=== PATIENT | female | born 1955 | race Caucasian/White ===

== ENCOUNTER 2018-05-14 18:14 | Inpatient (IN) | payer BC ==
[2018-05-14 18:47] LABS: PLATELET COUNT 161 10^3/uL (150-400)
[2018-05-14] MEDS ORDERED: EPINEPHrine 1 MG/10 ML SYR IVP ONE ×5 (18:59→20:43)
[2018-05-14] MEDS ORDERED: NALOXONE HCL 0.4 MG/ML INJ IVP ONE (19:00)
[2018-05-14] MEDS ORDERED: SODIUM BICARBONATE 50 MEQ/50 ML SYR IVP ONE ×2 (19:00→22:21)
[2018-05-14] MEDS ORDERED: NS 1,000 ML IV ONE (19:02)
[2018-05-14] MEDS ORDERED: fentaNYL 100 MCG/2 ML INJ ONE (19:18)
[2018-05-14] MEDS ORDERED: LIDOCAINE 1% 300 MG/30 ML SDV ONE (19:18)
[2018-05-14] MEDS ORDERED: IOPAMIDOL (ISOVUE-370) 150 ML BTL IV ONE (19:19)
[2018-05-14] MEDS ORDERED: MIDAZOLAM 2 MG/2 ML VIAL ONE (19:19)
[2018-05-14] MEDS ORDERED: IOPAMIDOL (ISOVUE 370) 100 ML BTL IV ONE ×2 (19:24→19:48)
[2018-05-14] MEDS ORDERED: BIVALIRUDIN 250 MG/5 ML VIAL IV ONE (20:19)
[2018-05-14] MEDS ORDERED: VERAPAMIL 5 MG/2 ML VIAL ONE (20:19)
[2018-05-14] MEDS ORDERED: HEPARIN 10,000 UNIT/10 ML MDV (1,000 UNIT/ML) ONE (20:19)
[2018-05-14] MEDS ORDERED: NITROGLYCERIN 1,500 MCG/15 ML VIAL MISC ONE (20:20)
[2018-05-14] MEDS ORDERED: ATROPINE SULFATE 1 MG/10 ML SYR ONE (20:20)
[2018-05-14] MEDS ORDERED: ETOMIDATE 40 MG/20 ML INJ ONE (20:27)
[2018-05-14] MEDS ORDERED: SUCCINYLCHOLINE CHLORIDE 200 MG/10 ML SYR IVP ONE (20:28)
[2018-05-14] MEDS ORDERED: DOPamine/DEXTROSE 400 MG/250 ML BAG IV ONE ×2 (20:33→20:43)
[2018-05-14] MEDS ORDERED: SODIUM BICARBONATE 50 MEQ/50 ML SYR ONE (20:43)
[2018-05-14] MEDS ORDERED: D25W 2.5 GM/10 ML SYR IVP ONE (20:43)
--- NOTE | 2018-05-14 20:44 | EDPHY ---
H & P Stated Complaint: Passed out at home. Time Seen by Provider: 05/14/18 18:15 HPI/ROS: CHIEF COMPLAINT: Unresponsive Limitations: Unresponsive HISTORY OF PRESENT ILLNESS: 62-year-old female with diabetes presents with unresponsiveness. According to her , she was acting normally throughout the day and has not been ill recently. However he took a nap and when he awoke at 5:00 p.m., she was lying on the couch unresponsive and blue. On EMS arrival , she was blue, agitated and they were unable to obtain vital signs. O2 by face mask placed. Unable to obtain IV access. She was writhing and complained of back pain. She is unable to provide any clinical history. Per , does not take pain or sedative medications. No prior cardiopulm disease. No vomiting. ROS: unable to obtain - Personal History Current Tetanus Diphtheria and Acellular Pertussis (TDAP): Unsure - Medical/Surgical History Hx Diabetes: Yes Other PMH: Diabetic. Compression discs. CHF. Pinched nerves. - Social History Smoking Status: Unknown if ever smoked Drug Use: None Additional Social History: - Physical Exam Exam: General Appearance: greyish coloration, opens eyes to voice, reclining on gurney Eyes: Pupils equal and round, 3mm ENT, Mouth: Mucous membranes moist Neck: Normal inspection Respiratory: Decreased respiratory effort, but breathing spontaneously Cardiovascular: Regular tachycardia Gastrointestinal: Abdomen is soft, obese, no apparent tenderness Neurological: Opens eyes to voice, moves all extremities, but not to command Skin: Warm and dry Extremities: Normal inspection Psychiatric: Agitated Constitutional: Initial Vital Signs Heart Rate 130 H 05/14/18 18:17 Respiratory Rate 28 H 05/14/18 18:17 O2 Sat (%) 93 05/14/18 18:17 O2 Delivery Mode Ventilator Allergies/Adverse Reactions: Unable to Assess Allergy (Unverified 05/14/18 21:18) Home Medications: Medication Instructions Recorded NK [No Known Home Meds] 05/14/18 Medical Decision Making - Diagnostics EKG Interpretation: EKG interpreted by me reveals normal sinus rhythm, rate 86, ST segment depression in leads V2 through the 6, consistent with posterior OK. ST segment depression in leads II, III, AVF. Interpretation: Abnormal EKG Imaging Results: Chest X-Ray 05/14/18 18:24 Impression: 1. Endotracheal tube seen with the tip approximately 6 cm above the christy. 2. Cardiac enlargement. 3. Possible mediastinal widening with additional imaging evaluation suggested if the patient's condition allows. Results called and discussed with Dr. Lucas on 05/14/2018 at 19:12.. Imaging: Discussed imaging studies w/ surgeon assistant Radiologist, I viewed and interpreted images myself Procedures: Procedure: RSI Intubation Indication for the procedure was respiratory arrest. The patient was preoxygenated with 100% oxygen by face mask. The patient was orally endotracheally intubated under direct glidescope visualization with a 7.5 ETT. Tracheal intubation was confirmed with misting on the tube; equal breath sounds bilaterally immediately after intubation; appropriate color change with [place] Tidal CO2 detector; and appropriate capnography waveform. Oxygen saturation after intubation is 88%. Chest X-ray shows ETT is high; RT advanced the ETT for better positioning. The procedure was performed by myself. ED Course/Re-evaluation: This patient presents with respiratory failure. Unable to obtain vital signs on arrival to the ER. During my initial evaluation, it was clear that she needed to be intubated. We moved her to the critical care room and during transfer, she became unresponsive to painful stimuli, with minimal respiratory effort. She was bag-valve mask ventilated and then I orally intubated her with a 7.0 endotracheal tube. An IO line was placed in the tibia and then 2 IV lines were ultimately established. Narcan 2 mg IV given without change in mental status. Initial blood glucose 300's. No medications required for intubation because of unresponsiveness. Immediately after the intubation, she did not have pulses. ACLS protocol initiated, with CPR and epinephrine IV. She was in asystole throughout the resuscitation. After IV bicarb, she regained pulses and was in a sinus rhythm with PVC's. Hypotensive, dopamine drip initiated. Stat EKG at this point revealed acute posterior OK. A cardiac alert was called. Consulted Dr. Mercer. Ice packs were applied for cooling with plan for thermoguard placement in lab director. Stat chest x-ray revealed endotracheal tube a little high and it was lowered. Mediastinum was wide; unclear if this was because of aortic dissection versus supine positioning. Her vital signs improved and she was felt stable to go to CT scan for CTA of the chest prior to cardiac catheterization. CT revealed no evidence of dissection. She was taken from CT directly to the cardiac catheterization lab. Propofol drip started for sedation prior to transfer. Multiple discussions with pt's , who was present during the resuscitation. I spent a total of 60 minutes of critical care time in obtaining history, performing a physical exam, bedside monitoring of interventions, collecting and interpreting tests and discussion with consultants but not including time spent performing procedures. Organs at risk: cardiac, respiratory, all Differential Diagnosis: Differential diagnosis includes does not limited to acute coronary syndrome, pneumonia, pulmonary embolism, dissection, CVA, hypoglycemia, narcotic overdose. - Data Points Laboratory Results: Laboratory Results 05/14/18 18:30 05/14/18 18:30 Medications Given: Dopamine HCl/Dextrose (Dopamine 1600 Mcg/Ml (Premix)) 250 mls @ 0 mls/hr IV CONT LOBO; Titrate PRN Reason: Protocol Stop: 11/10/18 19:29 Last Admin: 05/15/18 10:31 Dose: 250 mls Sodium Chloride (Ns) 1,000 mls @ 150 mls/hr IV CONT LOBO Stop: 11/10/18 22:14 Last Admin: 05/15/18 06:22 Dose: 1,000 mls Propofol (Diprivan 10 Mg/Ml (Premix)) 100 mls @ 0 mls/hr IV CONT LOBO; Titrate PRN Reason: Protocol Stop: 11/10/18 22:29 Last Admin: 05/15/18 08:37 Dose: 100 mls Vecuronium [place] 50 mg/ (Dextrose) 50 mls @ 0 mls/hr IV CONT LOBO; Per Protocol PRN Reason: Protocol Stop: 11/11/18 08:59 Last Admin: 05/15/18 09:23 Dose: 50 mls Discontinued Medications Epinephrine HCl (Epinephrine) 1 mg IVP EDNOW ONE Stop: 05/14/18 19:00 Last Admin: 05/14/18 18:38 Dose: 1 mg Epinephrine HCl (Epinephrine) 1 mg IVP EDNOW ONE Stop: 05/14/18 19:01 Last Admin: 05/14/18 18:41 Dose: 1 mg Epinephrine HCl (Epinephrine) 1 mg IVP EDNOW ONE Stop: 05/14/18 19:01 Last Admin: 05/14/18 18:42 Dose: 1 mg Sodium Chloride (Ns) 1,000 mls @ 0 mls/hr IV EDNOW ONE; Wide Open PRN Reason: Protocol Stop: 05/14/18 19:03 Last Admin: 05/14/18 18:35 Dose: 1,000 mls Potassium Chloride (Potassium Cl 20 Meq (Premix)) 50 mls @ 50 mls/hr IV Q1H LOBO Stop: 05/15/18 08:14 Last Admin: 05/15/18 08:10 Dose: 50 mls Lidocaine (Lidocaine 2% Jelly) 2 mor TP ONCALL ONE Stop: 05/15/18 09:08 Last Admin: 05/15/18 09:44 Dose: 1 ampil Lidocaine HCl (Lidocaine Hcl 1%) 1 - 300 mg MISC ONCALL ONE Stop: 05/15/18 09:08 Last Admin: 05/15/18 09:28 Dose: 300 mg Naloxone HCl (Narcan) 0.4 mg IVP EDNOW ONE Stop: 05/14/18 19:01 Last Admin: 05/14/18 18:30 Dose: 0.4 mg Sodium Bicarbonate (Sodium Bicarbonate) 50 meq IVP EDNOW ONE Stop: 05/14/18 19:01 Last Admin: 05/14/18 18:42 Dose: 50 meq Sodium Bicarbonate (Sodium Bicarbonate) 50 meq IVP ONCE ONE Stop: 05/14/18 22:22 Last Admin: 05/14/18 23:06 Dose: 50 meq Vecuronium [place] (Vecuronium [place]) 22.5 mg IVP ONCE ONE Stop: 05/15/18 09:01 Last Admin: 05/15/18 09:23 Dose: 22.5 mg Point of Care Test Results: Chemistry 05/14/18 19:32 POC Troponin I 0.08 ng/mL ng/mL (0.00-0.08) Blood Gas/Lactic Acid-Arterial 05/14/18 20:40 Tidal Volume 600 Departure - Departure Disposition: [facility] Inpatient Acute Clinical Impression: Acute coronary syndrome Respiratory failure Qualifiers: Chronicity: acute Respiratory failure complication: hypoxia and hypercapnia Qualified Code(s): J96.01 - Acute respiratory failure with hypoxia; J96.02 - Acute respiratory failure with hypercapnia; J96.02 - Acute respiratory failure with hypercapnia; J96.02 - Acute respiratory failure with hypercapnia Condition: Critical
--- NOTE | 2018-05-14 21:09 | GHP ---
DATE OF ADMISSION: 05/14/2018 REASON FOR ADMISSION: Probable acute posterior myocardial infarction. HISTORY: The patient is a 62-year-old female. She has a past history of hypertension and type 2 diabetes. She was previously on treatment for both of these issues, but has not been on medications in the past few years. She is morbidly obese. She and her were at home this evening. She went out to their porch to sit on a couch and work on her computer. Sometime within 30-45 minutes later, her looked out on the porch and noticed that her computer had fallen to the ground. He found her to be breathing but cyanotic. She was minimally responsive. He called 911. The patient was transported to the emergency room at [facility] where her initial ECG demonstrated significant precordial ST-segment depression, suggesting a possible posterior myocardial infarction. The patient was unstable with hypotension and hypoxia. At some point, she was reported to be writhing and complaining of back pain. Preparations were made to intubate her. In and around the time of her intubation, she developed asystole and chest compressions were initiated. She received rounds of intravenous epinephrine and was started on intravenous dopamine. She had return of a blood pressure and pulse. I was contacted regarding a cardiac alert. As I arrived to the hospital emergency room, I was contacted by the ER attending who relayed that her portable chest x-ray was suggestive of a widened mediastinum. This was concerning, given her clinical history that she might possibly have an ascending aortic dissection that occluded the right coronary artery, producing an appearance of a posterior infarct. Preparations were made to transport the patient to the CT scanner for CT angiography of the aorta. That study has just been completed and she does not have an aortic dissection. She is now being transported to the cardiac laborer pipeline for diagnostic angiography and possible coronary intervention. PAST MEDICAL HISTORY: As mentioned above, she was previously treated for diabetes and hypertension. Hospital records demonstrate that she had hyperlipidemia in the past. She was previously under the care of Dr. Juan Miguel Caruso and Dr. Brayan Deng. Her reports that she has issues with anxiety. PAST SURGICAL HISTORY: There are no known previous surgical procedures. MEDICATIONS: Currently not taking any prescription medications. ALLERGIES: No known drug allergies. SOCIAL HISTORY: She is . She smokes 8-10 cigarettes per day. She does not consume significant amounts of alcohol. She does not use illicit substances. 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 REVIEW OF SYSTEMS: Unobtainable at this time. FAMILY HISTORY: Unknown. PHYSICAL EXAMINATION: VITAL SIGNS: Heart rate in the range of 115 BPM. Blood pressure 152/84 mmHg on intravenous dopamine. O2 saturation 92%. GENERAL: This is a morbidly obese, middle-aged woman who is currently intubated and not responsive. HEENT: Head and neck: No scleral icterus. Mucous membranes moist. CHEST: Lung leonard clear anteriorly. CARDIAC: Regular rate and rhythm with normal S1 and S2. No murmur or gallop. ABDOMEN: Obese, soft, nondistended. EXTREMITIES: 2+ pulses in all 4 extremities. DIAGNOSTIC DATA: Her ECG demonstrates sinus rhythm at 86 beats per minute. She has inferior and precordial ST-segment depressions. She has borderline voltage criteria for left ventricular hypertrophy. LABORATORY STUDIES: Her sodium is 141 with potassium 3.5. BUN 16 and creatinine 0.8. Her arterial blood gas demonstrates a pH of 6.64 with PO2 of 110, pCO2 of 78, and bicarbonate 8. Her CBC demonstrates a white blood cell count at 9.55 with hemoglobin and hematocrit of 16.9 and 58.2. Platelet count 161,000. IMPRESSION/PLAN: This is a 62-year-old woman who presents with a sudden collapse. She has an electrocardiogram suggestive of a posterior infarct. Because of mediastinal widening on her chest x-ray, a CT angiogram of the thoracic aorta was performed, which does not demonstrate acute aortic dissection. She has risk factors for coronary artery disease. Preparations are underway to perform emergent coronary angiography and possible coronary intervention. There will be a significant delay in her door to balloon time, which was secondary to the need to confirm the absence of an aortic dissection by CT scan. She will definitely require greater than 2 midnights' hospital stay for care of her life-threatening condition. /[id number]/MODL MTDD
[2018-05-14] MEDS ORDERED: ATROPINE SULFATE 1 MG/10 ML SYR IVP PRN (21:21)
[2018-05-14] MEDS ORDERED: ACETAMINOPHEN 325 MG TAB PO PRN (21:21)
--- NOTE | 2018-05-14 22:03 | CPEKG ---
Test Reason : OPEN Blood Pressure : / mmHG Vent. Rate : 086 BPM Atrial Rate : 086 BPM P-R Int : 136 ms QRS Dur : 113 ms QT Int : 319 ms P-R-T Axes : 120 077 251 degrees QTc Int : 382 ms Sinus tachycardia Atrial premature complexes LVH with secondary repolarization abnormality Repol abnrm, severe global ischemia (LM/MVD) ST segment depression V2-V6, c/w posterior CO Confirmed by Olena Lucas ([id number]) on 05/14/2018 10:02:39 PM Referred By: Confirmed By:Olena Lucas
--- NOTE | 2018-05-14 22:09 | CPIP ---
DATE OF PROCEDURE: 05/14/2018 INDICATION FOR PROCEDURE: Out of hospital cardiac or respiratory collapse, abnormal ECG suggesting acute posterior myocardial infarction, hypotension, and a period of asystole in the emergency room. DETAILS OF PROCEDURE: The patient was brought to the cardiac lab engineer emergently after undergoing CT angiography of the aorta to rule out acute aortic dissection. The right groin was prepped and draped in sterile fashion. A 6-Peruvian sheath was placed in the right femoral artery. Coronary angiography was performed using standard Emilie catheters and techniques. A left ventriculogram was performed in the 30-degree COFFEY projection using a 6-Peruvian pigtail catheter. Following the diagnostic angiographic procedure, a 7-Peruvian sheath was placed in the right femoral vein. A 7-Peruvian balloon-directed pulmonary catheter was used to perform right heart catheterization. The femoral and arterial venous sheaths were sutured in place at the termination of her procedure. FINDINGS: Hemodynamics: 1. Aortic pressure: 87/60/69 mmHg. 2. Left ventricle: 102/25 mmHg. 3. Right atrium: 18 mmHg. 4. Right ventricle: 56/23 mmHg. 5. Pulmonary artery: 56/27/38 mmHg. 6. Pulmonary capillary wedge: 25 mmHg. Oxygen Saturations: 1. Aorta: 94.6%. 2. Pulmonary artery: 73.9%. 3. Cardiac output: 6.0 L/minute. 4. Cardiac index: 2.47 L/minute/sq m. Left Ventriculogram: Left ventricular systolic function is normal to hyperdynamic with an estimated ejection fraction of 70%. There is no regional variation in contractility. Coronary Angiography: The patient has a right-dominant circulation pattern. 1. Left main: The left main coronary is normal in appearance. 2. Left anterior descending: The left anterior descending and its diagonal branches exhibit minimal luminal irregularities. 3. Circumflex: The circumflex and its obtuse marginal branches exhibit minimal luminal irregularities. 4. Right coronary artery: The RCA and its distal branches exhibit minimal luminal irregularities. COMPLICATIONS: None. CONCLUSIONS: 1. Normal left ventricular systolic function. 2. Minimal early coronary atherosclerotic changes. 3. Moderate pulmonary hypertension. 4. Normal cardiac output/cardiac index. /[id number]/MODL MTDD
[2018-05-14] MEDS ORDERED: ACETAMINOPHEN 650 MG SUPP PR PRN (22:12)
[2018-05-14] MEDS ORDERED: ONDANSETRON 4 MG/2 ML VIAL IVP PRN (22:12)
[2018-05-14] MEDS ORDERED: INSULIN REGULAR HUMAN 100 UNIT in NS 100 ML IV SCH (22:30)
[2018-05-14 22:43] LABS: CREATINE KINASE 565 IU/L (0-156)
[2018-05-14 22:54] LABS: PLATELET COUNT 157 10^3/uL (150-400)
[2018-05-14] MEDS: PROPOFOL/EMULSION 100 ML IV SCH (23:06)
--- NOTE | 2018-05-14 23:08 | PDGENHP ---
History and Physical - Chief Complaint found unresponsive and cyanotic. cardiac arrest - History of Present Illness Source - Case discussed with accepting hospitalist, patient family (including and adult children), surgeon and pulm/cc providers. EMR was reviewed. HPI - 62 yo F with pmx significant for untreated DM II/neuropathy, HTN, morbid obesity, lymphedema who presents to the ED today via EMS after found her unresponsive on the porch. The patient apparently had gone to sit down and look at her tablet her computer approximately 1 hr afterwards has been woke from a nap and came to check on the patient and found her to be unresponsive with the computer on the floor. She was not able to arouse the patient and she appeared cyanotic but was still breathing. 911 was called and EMS was unable to obtain a set of vital signs or pulse ox. Patient on route was agitated complaining of back pain with progressively worsening responsiveness. patient brought into the ED where she was emergently intubated. In process of moving patient to the critical care room in the ED she subsequently became unresponsive with loss of pulses. She underwent approximately 15-20 minutes of CPR with ROSC. She required dopamine for pressure support which continues in the ICU. Patient subsequently taken on for CTA on for concerns of widened mediastinum on chest x-ray. No evidence of aortic dissection. No PE. There is left lower lobe effusion and contusion possibly related to CPR. Patient subsequently taken emergently to the car barn laborer where there is no no evidence of occlusive disease. Patient with fluctuating blood pressures as low systolic in the 50s. Improve after IV fluids and use of dopamine but remains variable. Patient also developed myoclonic jerking improved with sedation. Has been denies any recent complaints or symptoms of cough, rhinorrhea or upper respiratory symptoms. No history of diarrhea or sick contacts. No fevers or chills recently. Per the , patient was in her usual state of health. He does note patient has been having symptoms of polyuria, polydipsia dip see a, polyphasia. He admits that over the last several years she has become terrified of going to healthcare providers and has not been on any medications or had any monitoring of her diabetes her other chronic medical issues in several years. He states that she also minimize the some of her symptoms and does not tend to share with the family any acute changes. denies any known fevers chills or appearance of feeling acutely ill from her baseline. She has been having issues with her lymphedema and has been seeing her niece who is a massage therapist trying to work on those symptoms. She has been having increased neuropathy as well as chronic back pain issues with radicular symptoms. She does have chronic orthopnea and must sleep almost upright in order to breathe at night time. Has been denies witnessing any apneic episodes but she has severe snoring and difficulty breathing if she reclines too far back. History Information - Allergies/Home Medication List Allergies/Adverse Reactions: Unable to Assess Allergy (Unverified 05/14/18 21:18) Home Medications: NK [No Known Home Meds] 05/14/18 [Last Taken Unknown] I have personally reviewed and updated: family history, medical history, social history, surgical history Past Medical History: Obtained per patient's and adult children. - Past Medical History diabetes type 2 Additional medical history: Dm 2 uncontrolled untreated, HLD, HTN, morbid obesity, neuropathy, RLS, lymphedema, chronic back pain with compressed discs and radicular symptoms. - Surgical History Additional surgical history: Eyelid tumor benign removed. Knee surgery 30 years ago. - Family History Positive for: diabetes type II - Social History Tobacco Use: Cigarettes (Less than half pack per day) Alcohol Use: None Drug Use: None Additional social history: Cor status-full per family. Patient is and lives with her . Review of Systems Review of Systems: Unable to obtain as patient is intubated and sedated unresponsive. See HPI as noted per . Physical Exam Physical Exam: Selected Entries 05/14/18 05/14/18 05/14/18 18:17 18:40 18:48 Blood Pressure Automatic Automatic Method Heart Rate 130 H 86 80 Respiratory 28 H Rate O2 Sat (%) 93 76 L 76 L Temperature (C) 35.8 C L Blood Pressure 115/42 L Mean Arterial 66 Pressure (MAP) ETCO2 (mmHg) 58 H O2 Delivery Room Air Ventilator Ventilator Mode Temperature Oral Axillary Source Temp Pulse Resp BP Pulse Ox 34.9 C L 85 24 H 110/69 91 L 05/14/18 22:53 05/14/18 22:53 05/14/18 22:53 05/14/18 22:53 05/14/18 22:53 FIO2 (%) 100 Constitutional: chronically ill appearing, obese, other (Patient appears critically ill. Morbidly obese female is intubated in bed.) Eyes: PERRL (Decreased reactivity to light bilaterally but symmetric.), anicteric sclera, No EOMI (Unable to obsess secondary to patient's sedation and unresponsive state), No scleral injection Ears, Nose, Mouth, Throat: no oral mucosal ulcers, poor dentition (Edentulous), dry mucous membranes, other (No nasal discharge) Cardiovascular: regular rate and rhythym, no murmur, rub, or gallop, pulses symmetric bilaterally (Diminished trace to 1+.), bradycardia (50s to 60s), No systolic murmur, No edema Peripheral Pulses: 1+: dorsalis-pedis (R), dorsalis-pedis (L) Respiratory: reduced air movement (Bibasilar. Diminished. Slightly coarse breath sounds on the left lower lung leonard.), inspiratory crackles, other ( Intubated), No expiratory wheeze, No rhonchi Gastrointestinal: other (Hypoactive bowel sounds. Obese abdomen.) Genitourinary: no bladder tenderness, koenig in urethra, other (Patient with various bilateral femoral lines/catheters in place) Skin: warm, no rashes or abrasions, other (Fingernails and toenails dark in with decreased cap refill), No mottled, No erythema Musculoskeletal: other (Sedated. Mild clonic jerking intermittently. No purposeful movement appreciated.) Neurologic: other (Intubated sedated.) Psychiatric: other (Intubated sedated.) Lab Data & Imaging Review 05/14/18 22:00 05/14/18 22:10 WBC 19.03 10^3/uL (3.80-9.50) H 05/14/18 22:00 RBC 4.83 10^6/uL (4.18-5.33) 05/14/18 22:00 Hgb 14.4 g/dL (12.6-16.3) 05/14/18 22:00 Hct 43.0 % (38.0-47.0) 05/14/18 22:00 MCV 89.0 fL (81.5-99.8) 05/14/18 22:00 MCH 29.8 pg (27.9-34.1) 05/14/18 22:00 MCHC 33.5 g/dL (32.4-36.7) 05/14/18 22:00 RDW 13.2 % (11.5-15.2) 05/14/18 22:00 Plt Count 157 10^3/uL (150-400) 05/14/18 22:00 MPV 11.5 fL (8.7-11.7) 05/14/18 22:00 Neut % (Auto) Not Reported 05/14/18 22:00 Lymph % (Auto) Not Reported 05/14/18 22:00 [place] % (Auto) Not Reported 05/14/18 22:00 Eos % (Auto) Not Reported 05/14/18 22:00 Baso % (Auto) Not Reported 05/14/18 22:00 Nucleat RBC Rel Count Not Reported 05/14/18 22:00 Absolute Neuts (auto) Not Reported 05/14/18 22:00 Absolute Lymphs (auto) Not Reported 05/14/18 22:00 Absolute Monos (auto) Not Reported 05/14/18 22:00 Absolute Eos (auto) Not Reported 05/14/18 22:00 Absolute Basos (auto) Not Reported 05/14/18 22:00 Absolute Nucleated RBC Not Reported 05/14/18 22:00 Immature Gran % Not Reported 05/14/18 22:00 Seg Neutrophils % 65.7 % 05/14/18 22:00 Band Neutrophils % 23.5 % 05/14/18 22:00 Lymphocytes % 7.8 % 05/14/18 22:00 Monocytes % 2.0 % 05/14/18 22:00 Eosinophils % 0.0 % 05/14/18 22:00 Basophils % 1.0 % 05/14/18 22:00 Metamyelocytes % 0.0 % 05/14/18 22:00 Myelocytes % 0.0 % 05/14/18 22:00 Promyelocytes % 0.0 % 05/14/18 22:00 Blast Cells % 0.0 % 05/14/18 22:00 Immature Gran # Not Reported 05/14/18 22:00 Absolute Seg Neuts 12.50 10^/uL (1.70-6.50) H 05/14/18 22:00 Absolute Band Neuts 4.47 10^3/uL (0.00-0.70) H 05/14/18 22:00 Absolute Lymphocytes 1.48 10^3/uL (1.00-3.00) 05/14/18 22:00 Absolute Monocytes 0.38 10^3/uL (0.30-0.80) 05/14/18 22:00 Absolute Eosinophils 0.00 10^3/uL (0.03-0.40) L 05/14/18 22:00 Absolute Basophils 0.19 10^3/uL (0.02-0.10) H 05/14/18 22:00 Absolute Metamyelocyte 0.00 10^3/mL (0.00-0.00) 05/14/18 22:00 Absolute Myelocytes 0.00 10^3/mL (0.00-0.00) 05/14/18 22:00 Absolute Promyelocytes 0.00 10^3/uL (0.00-0.00) 05/14/18 22:00 Absolute Plasma Cells 0.00 10^3/uL (0.00-0.00) 05/14/18 22:00 Nucleated RBCs 0 /100 WBC (0-0) 05/14/18 22:00 Absolute Blast Cells 0.00 10^3/uL (0.00-0.00) 05/14/18 22:00 Plasma Cells % 0.0 % 05/14/18 22:00 Platelet Estimate ADEQUATE (ADEQ) 05/14/18 22:00 Schistocytes 1+ H 05/14/18 22:00 D-Dimer 0.88 ug/mLFEU (0.00-0.50) H 05/14/18 18:30 Puncture Site ARTERIAL LINE 05/14/18 22:18 Patient Temperature 35.0 DEGREES 05/14/18 22:18 pCO2 38 mmHg (34-38) 05/14/18 22:18 pO2 65 mmHg (65-75) 05/14/18 22:18 Total CO2 17 mEq/L (23-27) L 05/14/18 22:18 ABG pH 7.24 (7.35-7.45) L 05/14/18 22:18 ABG PO2/FiO2 Ratio 65 RATIO 05/14/18: ABG HCO3 16 mEq/L (22-26) L 05/14/18:18 ABG O2 Saturation 90 % (92-95) L 05/14/18 22:18 ABG Base Excess -11.2 mEq/L (-2.5-2.5) L 05/14/18 22:18 ABG Lactic Acid 6.1 mmol/L (0.5-1.6) H 05/14/18 22:18 O2 Concentration % 100 % (0-100) 05/14/18 22:18 Actual Respiration Rate 24 05/14/18 22:18 Set Respiration Rate 24 05/14/18 22:18 Tidal Volume 600 05/14/18 22:18 PEEP 5 05/14/18 22:18 Pressure Support 12 05/14/18 22:18 Sodium 137 mEq/L (135-145) 05/14/18 22:10 Potassium 4.0 mEq/L (3.3-5.0) 05/14/18 22:10 Chloride 108 mEq/L (97-110) 05/14/18 22:10 Carbon Dioxide 16 mEq/l (22-31) L 05/14/18 22:10 Anion Gap 13 mEq/L (8-16) 05/14/18 22:10 BUN 16 mg/dL (7-23) 05/14/18 22:10 Creatinine 1.4 mg/dL (0.6-1.0) H 05/14/18 22:10 Estimated GFR 38 05/14/18 22:10 Glucose 307 mg/dL (70-100) H 05/14/18 22:10 Calcium 7.6 mg/dL (8.5-10.4) L 05/14/18 22:10 Ionized Calcium 1.12 MMOL/L (1.12-1.30) 05/14/18 22:18 Phosphorus 5.3 mg/dL (2.5-4.5) H 05/14/18 22:10 Magnesium 2.8 mg/dL (1.6-2.3) H 05/14/18 22:10 Total Bilirubin 0.5 mg/dL (0.1-1.4) 05/14/18 22:10 ALT 794 IU/L (9-52) H 05/14/18 22:10 Alkaline Phosphatase 149 IU/L (38-126) H 05/14/18 22:10 Creatine Kinase 565 IU/L (0-156) H 05/14/18 22:10 POC Troponin I 0.08 ng/mL (0.00-0.08) 05/14/18 19:32 NT-Pro-B Natriuret Pep 777 pg/mL (0-125) H 05/14/18 18:30 Total Protein 5.5 g/dL (6.3-8.2) L 05/14/18 22:10 Albumin 2.9 g/dL (3.5-5.0) L 05/14/18 22:10 Urine Color YELLOW 05/14/18 22:22 Urine Appearance MODERATELY TURBID 05/14/18 22:22 Urine pH 6.0 (5.0-7.5) 05/14/18 22:22 Ur Specific [place] > 1.035 (1.002-1.030) H 05/14/18 22:22 Urine Protein 2+ (NEGATIVE) H 05/14/18 22:22 Urine Ketones NEGATIVE (NEGATIVE) 05/14/18 22:22 Urine Blood 2+ (NEGATIVE) H 05/14/18 22:22 Urine Nitrate NEGATIVE (NEGATIVE) 05/14/18: Urine Bilirubin NEGATIVE (NEGATIVE) 05/14/18 22:22 Urine Urobilinogen NEGATIVE EU (0.2-1.0) 05/14/18 22:22 Ur Leukocyte Esterase NEGATIVE (NEGATIVE) 05/14/18 22:22 Urine RBC 25-50 /hpf (0-3) H 05/14/18 22:22 Urine WBC 10-15 /hpf (0-3) H 05/14/18 22:22 Ur Epithelial Cells TRACE /lpf (NONE-1+) 05/14/18 22:22 Urine Mucus TRACE /lpf (NONE-1+) 05/14/18 22:22 Ur Culture Indicated? INDICATED (NI) H 05/14/18 22:22 Urine Glucose 2+ (NEGATIVE) H 05/14/18 22:22 Imaging Review: Portable Chest May 14, 2018 at 1853 hours Clinical Indications: Hypoxia and a 62-year-old female; follow-up intubation. No prior chest films are available for comparison. Findings: No focal pulmonary consolidation is identified. Peribronchial thickening is noted and there is mild increased interstitial prominence which may reflect an underlying interstitial lung disease. An endotracheal tube is noted at the level of the clavicular heads with the tip measured at 6 cm above the christy. The heart is enlarged allowing for supine technique. There is mild pulmonary venous hypertension. No pneumothorax is seen. There is possible mediastinal widening on this supine portable study. This could reflect aortic dissection. Impression: 1. Endotracheal tube seen with the tip approximately 6 cm above the christy. 2. Cardiac enlargement. 3. Possible mediastinal widening with additional imaging evaluation suggested if the patient's condition allows. Results called and discussed with Dr. Lucas on 05/14/2018 at 19:12.. Dictated By: Thong Wilson MD CT Angio Chest W IV Contrast ___ Addendum On the repeat bolus study there was excellent opacification of the pulmonary arteries as well as the aorta and there is no evidence for significant pulmonary embolic disease. Addendum Dictated By: Thong Wilson MD *This report was compiled using a voice recognition dictation system and may contain typographical errors* 37 T:[id number] 05/14/182137 Electronically Signed by:Thong Wilson MD 05/14/182139 CC: MARTIN LUCAS; NONE *PRIMARY CARE PHYS ONLY* CT Scan of the Chest (With Contrast) Clinical Indications: Chest pain and widened mediastinum in a 62-year-old female; evaluate for aortic dissection. Technique: During machine power injection of a total of 200 mL [id number]-300, intravenously, multidetector helical CT imaging was performed from the superior thoracic inlet to the diaphragm. Due to patient motion as well as poor bolus, the injection was repeated resulting in the elevated contrast dose. The radiologist manipulated images at the computer workstation. Dose reduction techniques were utilized. Findings: On the repeat study, there is excellent opacification of the pulmonary arteries as well as the aorta. There is no aortic dissection. There is ectasia of the aorta, with maximum diameter of the aorta at the level of the main pulmonary artery estimated at 36 mm. There is a small pericardial effusion, and there is also a small amount of fluid seen in the upper mediastinum possibly related to the CPR that was performed. No pneumothorax is seen, and no displaced rib fracture is identified. There is dense consolidation at the left lung base, with an associated left pleural effusion. There is minimal right basilar consolidation. There is groundglass opacity seen in the right upper lobe and to a lesser extent in the left upper lobe possibly reflecting pulmonary contusion. The upper abdomen is negative for acute abnormality on this study. The abdominal aorta tapers normally. There is dilatation of the iliac arteries bilaterally. Impression: 1. Negative for aortic dissection. 2. See above report for additional findings. Preliminary results discussed with the milk delivery driver Dr. Mercer. Dictated By: Thong Wilson MD Visualized and Interpreted Chest x-ray results: Yes Visualized and Interpreted imaging results: Yes Visualized and Interpreted EKG results: Yes EKG additional interpertation: NSR 80s. PACs. LVH. ST depression precordial leads. Assessment & Plan Assessment: 62-year-old female with uncontrolled and untreated diabetes, HTN, morbid obesity who presents unresponsive in acute respiratory failure s/p ROSC cardiac arrest. #Acute hypoxic and hypercarbic respiratory failure - status post intubation on assist control as per Dr. Angelo. Oxygenation has improved. Repeat ABG in the morning. It is unclear at this time the exact cause for patient's respiratory failure. Considerations including severe DKA or HHS versus aspiration versus obesity hypoventilation versus other metabolic or infectious causes. #Cardiac arrest - etiology for patient's arrest likely related to her severe acidosis and metabolic derangements. Cardiac cath negative for any occlusive disease. CTA of the chest was negative for any evidence of PE, dissection. Patient's history is not consistent with acute infectious process although blood cultures are pending x2. On initial white count was less than 10. Post CPR has escalated to 19 with a bandemia not unexpected. Patient has been afebrile. Discussed with Dr. Angelo and agrees to hold off on antibiotics unless patient procalcitonin should return exceedingly abnormal. She has not had any fevers and has had slightly low attempts prior to initiation of HACA. #Anion gap metabolic acidosis with a respiratory acidosis - acidosis is improving. Patient is status post 2 amps of bicarb. With improvement in her PH will hold off on further dosing. Repeat ABG in the morning. Continue aggressive IV fluid hydration and treatments as noted above and below. #Acute encephalopathy - related most likely to a metabolic and respiratory issues as noted above. Patient will remain sedated and cold as noted above. When patient has stabilized and she is no longer requiring cooling will need to consider CT head. Unable to do so at this time due to patient's high level of acute care support in the unit and HACA. #Shock - blood pressures remain labile but improving slowly with IV fluids as well as low-dose dopamine. Will not make any acute changes to her pressor support for now hopefully with continued IV so fluid support may titrate off of dopamine. If patient should continue to struggle to maintain blood pressures are have acute changes then will discontinue dopamine and initiate Levophed. #Diabetes type 2 uncontrolled - notes patient has not seen a PCP in several years. She has been having increasing symptoms of uncontrolled diabetes including neuropathy, polyuria, polydipsia, polyphagia. Check A1c. Initiate insulin drip. Checking serum ketones. #Hypernatremia - likely related to hypovolemia. Has improved after IV fluids and upon repeat lab testing. Patient with acute change in her sodium suspect this is likely also an acute event however. Will continue to monitor BMP. #Hyperkalemia - resolved after IV fluid hydration. Continue to monitor. #Transaminitis - patient baseline lab studies unknown at this time. Will continue to trend. Likely related to shock liver. #Shock liver - continue IV fluids and monitoring LFTs as noted above. #Coagulopathy - patient is not on any anticoagulant therapy at home. Likely related to shock liver. #Thrombocytosis - reactive in setting of acute respiratory and cardiac failure. Improved after IV fluids and resuscitation as noted above. #Leukocytosis with a bandemia - no history consistent with or findings concerning for an infectious process at this time. Acute changes likely related to patient's CPR. Blood cultures are pending as noted above. Patient currently on cooling. Do not suspect sepsis at this time. Procalcitonin is pending. #Acute kidney injury - likely secondary to hypovolemia. Creatinine has improved after IV fluids and blood pressure improvement. Continue monitor renal function. #Hypercalcemia now hypocalcemic - with a normal ionized calcium. Appears to correct for her hypoalbuminemia. #Elevated CK - status post CPR versus early rhabdo. Monitor a.m. CK. Continue with IV fluids. #Hypoalbuminemia - likely related to acute illness as noted above. #Morbid obesity BMI 60 - reports that patient did lose a considerable amount of weight several years ago but this has subsequently been regain. She does have difficulty sleeping at night does require to sit almost upright in a recliner chair in order to breathe during her sleep. She does have a significant history of snoring but has not not had any witnessed at episodes of apnea per her family. #Chronic back pain with radicular symptoms - patient had complaints of back has on route via EMS. Currently sedated. FEN - aggressive IV fluid hydration. Status post 2 L total fluid since arrival to the ED and ICU. Electrolytes repeated and improved. Patient NPO. Prophylaxis - SCDs. Patient undergoing procedures and lines. She initially had some acute kidney injury which has improved. Currently some mild coagulopathy and oozing from line sites. She will need anticoagulation will await until all anticipated procedures are completed before consideration for anticoagulation. Lines/Tubes - femoral central line, HACA, koenig, ETT, OGT, rectal tube Cor status-full Disposition-patient admitted inpatient status to the ICU. She is critically ill and I have discussed with the family and expressed how sick she is at this point with high risk for morbidity and mortality however will continue to provide full care and resuscitative efforts. Anticipate greater than 2 midnight stay. Total critical care time spent 65 min discussing with specialists and family and several visits to bedside for for direct patient care.
[2018-05-14 23:23] LABS: INR 1.45 (0.83-1.16); PROTIME(PATIENT) 17.8 SEC (12.0-15.0)
[2018-05-14] MEDS: NS 1,000 ML IV SCH (23:58)
[2018-05-15] MEDS: PROPOFOL/EMULSION 100 ML IV SCH ×8 (03:30→23:19)
[2018-05-15 05:10] LABS: PLATELET COUNT 121 10^3/uL (150-400)
[2018-05-15 05:31] LABS: CREATINE KINASE 2187 IU/L (0-156)
[2018-05-15 05:49] LABS: INR 1.34 (0.83-1.16); PROTIME(PATIENT) 16.8 SEC (12.0-15.0)
[2018-05-15] MEDS ORDERED: PROTOCOL POTASSIUM 1 DOSE MISC PRN (06:07)
[2018-05-15] MEDS: NS 1,000 ML IV SCH ×2 (06:22→18:14)
[2018-05-15] MEDS: POTASSIUM Cl (KCl) 50 ML IV SCH ×4 (06:24→13:05)
--- NOTE | 2018-05-15 08:48 | PDMN ---
Medical Necessity Medical necessity: MCG GRG Resp failure: pt is intubated S/P cardiac arrest, PMH uncontrolled and untreated DM, HTN, morbid obesity, -- pt with anion gap metabolic acidosis with resp. acidosis, acute encephalopathy, shock, hypernatremia, transminitis, thrombocytosis leukocytosis anticipate > 2 MN ongoing med nec care, tx and ongoing monitoring.
[2018-05-15] MEDS ORDERED: VECURONIUM BROMIDE 10 MG VIAL IVP ONE (09:00)
[2018-05-15] MEDS ORDERED: LIDOCAINE 2% JELLY 5 ML TUBE TP ONE (09:07)
[2018-05-15] MEDS ORDERED: LIDOCAINE 1% 300 MG/30 ML SDV MISC ONE (09:07)
[2018-05-15] MEDS: VECURONIUM BROMIDE 50 MG in D5W 50 ML IV SCH ×2 (09:23→13:37)
--- NOTE | 2018-05-15 09:46 | GCON ---
PROGRAM MANAGEMENT ANALYST CONSULTATION REASON FOR ADMISSION: Cardiac arrest, acute respiratory failure. HISTORY OF PRESENT ILLNESS: The patient is a 62-year-old white female, extensive past medical histor y including morbid obesity, hypertension, diabetes with diabetic neuropathy and lymphedema. She was brought to the emergency room after being found unresponsive by her . She was brought to the emergency room via EMS, and she was subsequently intubated and placed on mechanical ventilation. She was placed on HACA protocol and admitted to the intensive care unit. Currently, patient is obtunded , on mechanical ventilation. All history is gleaned from the medical record. Apparently, prior to a ll this, she was in her normal state of health. REVIEW OF SYSTEMS: Ten-point review of systems was unable to be performed secondary to obtundation a nd mechanical ventilation. PAST MEDICAL HISTORY: Again, significant for diabetes, hypertension, morbid obesity, peripheral neur opathy, lymphedema, chronic back pain, and diabetes. 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 ALLERGIES: No known allergies to medications. SOCIAL HISTORY: She has an extensive smoking history, now down to approximately half a pack a day. There is no alcohol use. She is , lives with her . Has good family support. FAMILY HISTORY: Noncontributory. PHYSICAL EXAM: VITAL SIGNS: Blood pressure is 161/85. Pulse is 61. Respirations are 24. Temperatu re is 33.3. Oxygen saturation 97% on 60% mechanical ventilation. GENERAL: She is a morbidly obese 62-year-old white female who is obtunded and on mechanical ventilation. HEENT: Pupils are smallish a nd sluggishly reactive. Throat: Endotracheal tube is in good position. NECK: Supple. There is no cervical adenopathy. HEART: Regular rate and rhythm, without murmurs, rubs, or gallops. LUNGS: S how diminished breath sounds, increased crackles in the bases bilaterally. ABDOMEN: Soft, nontender . Bowel sounds are present in all 4 quadrants. EXTREMITIES: 2+ lower extremity edema. LABORATORY DATA: White count 17.0, hemoglobin 13, hematocrit 40. Platelet count is 121. INR is 1.3 4. Sodium 140, potassium 3.2, chloride 115. CO2 is 18. BUN 20, creatinine 1.6. Glucose is 165. T is elevated at 1234, ALT 726. CPK is elevated at 2187. Troponins are positive and high. Urinalys is is negative. Arterial blood gas, pH 7.41, pCO2 of 25, PO2 of 48, bicarb 17, oxygen saturation 90% , and this is on mechanical ventilation, 50% FiO2. Chest x-ray shows endotracheal tube in good posit ion. CT angiogram of the chest shows no evidence of PE. There is ectasia of the aorta. There is a dense consolidation in the left base, as well as a pleural effusion. There is no opacification in th e right upper lobe. Cardiac catheterization reveals normal LV function, minimal early coronary ather osclerotic changes, and moderate pulmonary hypertension. IMPRESSION: 1. Status post cardiac arrest. 2. Hypothermia after cardiac rest (HACA), per protocol. 3. Acute respiratory failure. 4. Consolidation with likely pneumonia. 5. Morbid obesity. 6. Hypertension. 7. Diabetes. 8. Chronic back pain. 9. Hypokalemia. RECOMMENDATIONS: 1. Agree with HACA per protocol. 2. Continue mechanical ventilation for now. 3. Will start patient on paralytic. 4. Will perform fiberoptic bronchoscopy at soonest. 5. DVT and PE prophylaxis. 6. Stress ulcer prophylaxis. 7. Prognosis is unclear at this time. Thirty-five minutes of critical care time spent with the patient. Case discussed with Nursing and Re spiratory therapy. /[id number]/MODL
--- NOTE | 2018-05-15 09:56 | GOP ---
DATE OF OPERATION: 05/14/2018 SURGEON: Michoacano Farris MD GROUND WOOD SUPERVISOR: None. ANESTHESIA: 1% lidocaine. PREOPERATIVE DIAGNOSIS: Cardiac arrest. POSTOPERATIVE DIAGNOSIS: Cardiac arrest. PROCEDURE PERFORMED: Ultrasound-guided left femoral vein, hypothermia catheter insertion. FINDINGS: Successful cannulation and placement of left femoral hypothermia catheter with ultrasound guidance. SPECIMENS: None. ESTIMATED BLOOD LOSS: 10 cc. DESCRIPTION OF PROCEDURE: The patient was greeted in the intensive care unit. As she was obtunded, consent was obtained from the . The left groin was prepped and draped in typical sterile fash ion. I identified the left femoral vein using ultrasound guidance. I successfully cannulated it wit h a single stick, thread my guidewire. I serially dilated and threaded the catheter over it into the femoral vein. It both withdrew and flushed appropriately. It was attached to the skin. Sterile dr essing was placed. The patient tolerated the procedure well without any complications. DRAINS: None. /[id number]/MODL
--- NOTE | 2018-05-15 10:16 | GPN ---
PROCEDURE: Fiberoptic bronchoscopy. INDICATION: Atelectasis, mucous plugging, possible aspiration. ANESTHESIA: Patient is currently sedated on mechanical ventilation. DESCRIPTION OF PROCEDURE: Procedure was performed in the intensive care unit under continuous pulse ox, EKG, and blood pressure monitoring. Please note, patient is on mechanical ventilation, which is by definition a closed system and poses no risk to airborne pathogens. Bronchoscope was entered through a #7 endotracheal tube. Distal trachea and christy were visualized a nd showed no endobronchial lesion, normal-appearing mucosa. Bronchoscope was moved into the right steven ng. Right upper lobe, right middle lobe, right lower lobe, including subsegments were totally visual ized and showed normal mucosa and no lesions. Bronchoscope was moved into the left lung. Left upper lobe, lingula, lower lobe, including subsegments were visualized. The left upper lobe showed no les ions and minimal secretions. Left lower lobe showed moderate amount of mucus plugging that was thera peutically aspirated. Bronchoalveolar lavage was taken from the left lower lobe. This is sent for A FB, fungal cultures, and C and S. The patient tolerated the procedure well with no apparent complica tions. /[id number]/MODL
[2018-05-15] MEDS: PANTOPRAZOLE SODIUM 40 MG VIAL IVP SCH (11:33)
--- NOTE | 2018-05-15 12:03 | ASMTCMCOM ---
CM Note CM Note Notes: Pt is a 62 y/o female admitted after being found unresponsive, catatonic after having a cardiac arrest. Pt w/ a hx of untreated DM II/neuropathy, HTN, morbid obesity, lymphedema. [facility] w/ Dr. Mercer. SPL has been ordered and awaiting recommendations. Needs are TBD at this time. CM available for changes. Plan: TBD Date Signed: 05/15/2018 12:02 PM Electronically Signed By:VITOR Bernal
[2018-05-15] MEDS: fentaNYL/NACL 100 ML IV SCH (12:23)
--- NOTE | 2018-05-15 13:24 | HOSPPROG ---
Hospitalist Progress Note Assessment/Plan: * Cardiac arrest due to severe acidosis -cardiac cath negative, CTA chest negative * Possible anoxic encephalopathy -HACA protocol * Acute respiratory failure - vent * Diabetes - untreated -insulin gtt * Morbid obesity BMI 60 * Probable Obesity Hypoventilation Syndrome and MEREDITH * Anion gap metabolic and respiratory acidosis - ? DKA -s/p IV bicarb -ABG improved * Shock - on IV dopamine gtt * Coffee ground emesis -IV Protonix * Hyperkalemia - improved * Positive troponin - due to cardiac arrest -cardiac cath negative * Shock liver - follow * Acute renal failure - follow * Aspiration pneumonia -IV ceftriaxone, IV Flagyl * Lymphedema * Tobacco dependence CC time - 45 minutes Subjective: severe shivering on HACA - paralytic started. Posturing, otherwise no meaning neuro recovery Objective: Vital Signs Temp Pulse Resp BP Pulse Ox 32.9 C L 57 L 14 114/74 95 05/15/18 13:00 05/15/18 13:00 05/15/18 13:00 05/15/18 13:00 05/15/18 13:00 Microbiology 05/15/18 09:49 Gram Stain - Final Lung Bilateral - Bronchial Washings Laboratory Results 05/15/18 04:45 05/15/18 11:35 05/14/18 05/15/18 05/16/18 05:59 05:59 05:59 Intake Total 2500 Output Total 1350 780 Balance 1150 -780 PT 16.8 SEC (12.0-15.0) H 05/15/18 04:45 INR 1.34 (0.83-1.16) H 05/15/18 04:45 - Physical Exam Constitutional: no apparent distress, appears nourished, not in pain Cardiovascular: regular rate and rhythym, no murmur, rub, or gallop Respiratory: no respiratory distress, no rales or rhonchi, clear to auscultation Gastrointestinal: normoactive bowel sounds, soft, non-tender abdomen, no palpable masses Skin: no rashes or abrasions, no fluctuance, no induration Neurologic: No AAOx3 Psychiatric: No interacting appropriately ICD10 Worksheet Patient Problems: Problems Problem Status Onset Acute coronary syndrome Acute Respiratory failure Acute
[2018-05-15] MEDS: niCARdipine/NACL 200 ML IV SCH ×2 (14:49→18:31)
[2018-05-15 18:26] LABS: INR 1.1 (0.83-1.16); PROTIME(PATIENT) 14.4 SEC (12.0-15.0)
[2018-05-15] MEDS: ALBUTEROL 3 ML DEYVIAL IH PRN (20:00)
[2018-05-16] MEDS: NS 1,000 ML IV SCH ×3 (02:25→20:35)
[2018-05-16] MEDS: PROPOFOL/EMULSION 100 ML IV SCH ×6 (03:07→20:36)
[2018-05-16] MEDS: fentaNYL/NACL 100 ML IV SCH ×2 (03:09→13:47)
--- NOTE | 2018-05-16 06:12 | CPEKG ---
Test Reason : OPEN Blood Pressure : / mmHG Vent. Rate : 075 BPM Atrial Rate : 074 BPM P-R Int : 167 ms QRS Dur : 100 ms QT Int : 493 ms P-R-T Axes : 049 002 140 degrees QTc Int : 551 ms Sinus rhythm, artifact Abnormal T, consider ischemia, lateral leads Prolonged QT interval Confirmed by Tevin Shell ([id number]) on 05/16/2018 6:12:22 AM Referred By: Confirmed By:Tevin Shell
[2018-05-16 06:19] LABS: PLATELET COUNT 125 10^3/uL (150-400)
[2018-05-16 07:00] LABS: INR 1.04 (0.83-1.16); PROTIME(PATIENT) 13.8 SEC (12.0-15.0)
[2018-05-16 07:09] LABS: CREATINE KINASE 3113 IU/L (0-156)
--- NOTE | 2018-05-16 08:36 | PDINTPN ---
Town Clerk Progress Note Assessment/Plan: Assessment/plan: * Cardiac arrest-unclear etiology. Query obstructive sleep apnea and severe acidosis. Cardiac catheterization was negative * HACA protocol-currently warming * Morbid obesity * Diabetes-blood sugar under control * Acute respiratory failure-secondary to above -continue mechanical ventilation for now. -not ready for weaning. * Upper GI bleed * Probable obesity hypoventilation syndrome * Shock-stable on dopamine * Acute renal failure * Elevated transaminases-shock liver * Aspiration pneumonia- -continue current antibiotics * Lymphedema * VTE prophylaxis * Stress ulcer prophylaxis Subjective: Coma and on mechanical ventilation Objective: Vital Signs Temp Pulse Resp BP Pulse Ox 35 C L 119 H 20 107/65 96 05/16/18 08:00 05/16/18 08:00 05/16/18 08:00 05/16/18 08:00 05/16/18 08:00 Microbiology 05/15/18 09:49 Gram Stain - Final Lung Bilateral - Bronchial Washings 05/15/18 09:49 Mycobacterial Smear (DAMON) - Final Lung Bilateral - Bronchial Washings Laboratory Results 05/16/18 06:03 05/16/18 06:03 05/15/18 05/16/18 05/17/18 05:59 05:59 05:59 Intake Total 2500 5425.4 Output Total 1350 2180 0 Balance 1150 3245.4 0 PT 13.8 SEC (12.0-15.0) 05/16/18 06:03 INR 1.04 (0.83-1.16) 05/16/18 06:03 - Time Spent With Patient Time Spent With Patient: 35 min of critical care time spent with patient Case discussed with Respiratory therapy and Nursing Physical Exam - Physical Exam General Appearance: obtunded, No alert EENT: PERRL/EOMI, ET tube Neck: non-tender Respiratory: crackles (Bibasilar), other (Mechanical ventilation), No respiratory distress Cardiac/Chest: normal peripheral pulses, regular rate, rhythm, systolic murmur Peripheral Pulses: 2+: carotid (R), carotid (L), femoral (R), femoral (L), dorsalis-pedis (R), dorsalis-pedis (L) Abdomen: normal bowel sounds, non-tender, soft Pelvic Exam: deferred Rectal: deferred Skin: warm/dry Extremities: non-tender Neuro/Psych: No alert ICD10 Worksheet Patient Problems: Problems Problem Status Onset Acute coronary syndrome Acute Respiratory failure Acute
[2018-05-16] MEDS: PANTOPRAZOLE SODIUM 40 MG VIAL IVP SCH ×2 (09:10→20:38)
[2018-05-16] MEDS ORDERED: PROTOCOL MAGNESIUM 1 DOSE IV PRN (10:43)
[2018-05-16] MEDS ORDERED: PROTOCOL POTASSIUM 1 DOSE MISC PRN (10:43)
[2018-05-16] MEDS ORDERED: PROTOCOL K PHOSPHATE 1 DOSE IV PRN (10:43)
[2018-05-16] MEDS ORDERED: PROTOCOL CALCIUM 1 DOSE IV PRN (10:43)
[2018-05-16] MEDS: NOREPINEPHRINE 4MG/NS 500 ML IV PRN ×2 (13:54→14:40)
--- NOTE | 2018-05-16 14:25 | HOSPPROG ---
Hospitalist Progress Note Assessment/Plan: * Cardiac arrest due to severe acidosis - query DKA plus severe obesity, OHS, MEREDITH -cardiac cath negative, CTA chest negative * Possible anoxic encephalopathy -HACA protocol, re-warming today -discussed with neurology, who will do neurologic assessment once warm -no corneal reflex on my exam, but some pupillary response * Acute respiratory failure - vent management per pulm * MART - no uop overnight -bolus NS, consider lasix if no uop with fluid bolus -will add albumin * Diabetes - previously untreated, presented with DKA and profound acidemia ( pH 6.6) -insulin gtt * Morbid obesity BMI 60 - complicates all aspects of care * Probable Obesity Hypoventilation Syndrome and MEREDITH - currently on vent * Anion gap metabolic and respiratory acidosis - ? DKA -s/p IV bicarb -ABG improved * Shock - on IV dopamine gtt, but note tachycardia -change to Levophed * Coffee ground emesis -IV Protonix -monitor closely with addition of pplx lovenox * Hyperkalemia - improved * Positive troponin - due to cardiac arrest -cardiac cath negative * Shock liver - follow * Acute renal failure - follow * Aspiration pneumonia -IV ceftriaxone, IV Flagyl * Lymphedema * Tobacco dependence * DVT PPLX - will start pplx Lovenox once re-warmed * Dispo - cont inpt/ICU. 45 minutes critical care time, discussed with Dr. Rosales and care team at multidisciniplary rounds Subjective: Pt is intubated, sedated. A bit tachycardic this am. No fevers. Secretions noted with RT suctioning. Objective: Vital Signs Temp Pulse Resp BP Pulse Ox 36 C 122 H 18 98/60 L 93 05/16/18 13:00 05/16/18 13:00 05/16/18 13:00 05/16/18 13:00 05/16/18 13:00 Microbiology 05/15/18 09:49 Gram Stain - Final Lung Bilateral - Bronchial Washings 05/15/18 09:49 Mycobacterial Smear (DAMON) - Final Lung Bilateral - Bronchial Washings Laboratory Results 05/16/18 06:03 05/16/18 12:05 05/15/18 05/16/18 05/17/18 05:59 05:59 05:59 Intake Total 2500 5425.4 Output Total 1350 2180 0 Balance 1150 3245.4 0 PT 13.8 SEC (12.0-15.0) 05/16/18 06:03 INR 1.04 (0.83-1.16) 05/16/18 06:03 - Physical Exam Constitutional: chronically ill appearing, obese Eyes: PERRL Cardiovascular: regular rate and rhythym Respiratory: no respiratory distress, reduced air movement Gastrointestinal: normoactive bowel sounds, soft, non-tender abdomen Skin: warm Neurologic: other (intubated, sedated, no corneal reflex) ICD10 Worksheet Patient Problems: Problems Problem Status Onset Acute coronary syndrome Acute Respiratory failure Acute
[2018-05-16] MEDS ORDERED: NS 500 ML IV ONE (14:30)
[2018-05-16] MEDS ORDERED: FUROSEMIDE 40 MG/4 ML VIAL IVP PRN (14:46)
[2018-05-16] MEDS ORDERED: NOREPINEPHRINE BITARTRATE 4 MG in NS 500 ML IV SCH (15:00)
[2018-05-16] MEDS ORDERED: ALBUMIN 25% 100 ML SOLN IV ONE (15:08)
[2018-05-16] MEDS: ALBUMIN 25% 100 ML IV SCH (17:44)
[2018-05-16 18:43] LABS: INR 1.17 (0.83-1.16); PROTIME(PATIENT) 15.1 SEC (12.0-15.0)
[2018-05-16] MEDS ORDERED: SODIUM BICARBONATE 50 MEQ/50 ML SYR IVP ONE ×3 (19:00→23:00)
[2018-05-16] MEDS ORDERED: SODIUM BICARBONATE 50 MEQ/50 ML SYR ONE (19:06)
--- NOTE | 2018-05-16 20:00 | GCON ---
REFERRING PHYSICIAN: Sharon Carl MD HISTORY: The patient is a 62-year-old woman whom I am asked to see in neurologic consultation for ne urologic assessment of a patient who is now in coma following respiratory and circulatory arrest yest jose. The history is obtained from review of the medical records. I have also had discussions with providers and discussions with the . She actually came into the emergency department on the after being noted to have a cyanotic appearance by her and not meaningful respirations. Vital signs were not obtainable when rescue squad came, and she was brought to the emergency room, w here Dr. Lucas evaluated her and found that the patient initially responded by stating her name but johnston d profound respiratory impairment and within a short time became more unresponsive with respiratory a rrest and circulatory arrest as well. After perhaps 10-15 minutes of resuscitation attempts, bicarbo idania was given, and she started to have a pulse again. At that point, she went through workup for a possible aortic dissection, which was negative, and she went to the labor trainer and had clean coronaries documented, and Hypothermia After Cardiac Arrest protocol was initiated, and she has just been rewar med with completion of the rewarming 3 hours ago, and sedation was stopped about 15 minutes before my exam. She has a history of diabetes, congestive heart failure. No smoking or drug use. She is mar ried. The patient's current medication is Levophed and dopamine, although dopamine is being held bec ause we may have some tachycardia. She has been pressor-dependent for support of circulation. She i s on antibiotic therapy with ceftriaxone and receiving sedatives until just about 15 minutes before m y examination took place. She is intubated and not breathing over the ventilator currently. The nurse reports that the patient has some periods of apparent gagging and redness of the face, but that is not consistent with suctio homa. When I examine her, she has no response to verbal or painful stimuli. Brow pressure produces no visible response. There is no response in the extremities to painful stimuli. She has multifocal myoclonic jerks with a periodicity of approximately every 30 seconds. The pupils are about 3-4 mm, and both react. Corneal reflexes are absent. Oculocephalic reflexes are reduced. With suctioning, there seems to be a partial response with reddening of her face but not a purposeful grimace. The pa tient does not have response to painful stimuli in any of the extremities. Equivocal plantar respons es. IMPRESSION: Total unit time of 50 minutes with detailed discussions with the patient's family. The patient is in a comatose state following hypoxic ischemic injury from cardio and pulmonary arrest wit h prolonged resuscitation and prolonged periods of hypoperfusion suspected. She likely has diffuse c ortical injury and brainstem injury as well, although she has some brainstem reflexes present. It is too early to draw a definitive conclusion about her ultimate outcome, but the prognosis would currjose [place] be graded as poor. We certainly need at least 12-24 hours to fully see if there are any positive changes suggesting movement toward or away from a more meaningful recovery. I explained this to the family in detail and got their general comments on wanting to be supportive but certainly not wantin g to sustain her if it means a persistent vegetative state. I will assess her again tomorrow morning and consider diagnostic testing such as EEG to further help us with prognosis. /[id number]/MODL
[2018-05-16] MEDS ORDERED: POTASSIUM Cl (KCl) 50 ML IV ONE (20:31)
[2018-05-16] MEDS ORDERED: ENOXAPARIN 40 MG/0.4 ML SYR SC SCH (21:00)
[2018-05-16] MEDS: ALBUTEROL 3 ML DEYVIAL IH PRN (23:08)
[2018-05-17] MEDS: PROPOFOL/EMULSION 100 ML IV SCH ×5 (00:17→17:31)
[2018-05-17] MEDS: ALBUMIN 25% 100 ML IV SCH ×3 (00:17→12:21)
[2018-05-17 05:02] LABS: PLATELET COUNT 87 10^3/uL (150-400)
[2018-05-17] MEDS: NS 1,000 ML IV SCH (05:51)
--- NOTE | 2018-05-17 08:10 | NEUROPROG ---
Assessment: Total unit time of 25 min. 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 There are some brainstem reflexes present and she agrees over the ventilator but likely as diffuse cortical injury as well as some brainstem injury from this prolonged period of compromise. Her prognosis remains in the poor category. I have discussed this with the family. I will request EEG to more fully characterize the relative level of cerebral activity. There will continue to consider the options of withdrawing care or shifting the care to merely comfort measures but have not made that decision at this point. Subjective: The patient has now been normothermic since 1:00 p.m. Yesterday. She continues to have some myoclonus but it is much less in the last 12 hr. That no clinical evidence of seizure activity. She is no longer requiring pressors. She is with breathing over the ventilator went over. She gets restless and is a little needs sedation for smooth ventilation. There has been no purposeful interaction documented. Objective: Vital Signs Temp Pulse Resp BP Pulse Ox 36.7 C 109 H 23 H 167/90 H 92 05/17/18 05:00 05/17/18 05:56 05/17/18 05:56 05/17/18 05:56 05/17/18 05:56 Microbiology 05/14/18 22:22 Urine Culture - Final Urine,Clean Catch 05/15/18 09:49 Gram Stain - Final Lung Bilateral - Bronchial Washings Laboratory Results 05/17/18 04:15 05/17/18 04:15 05/16/18 05/17/18 05/18/18 05:59 05:59 05:59 Intake Total 5425.4 5576 Output Total 2180 428 Balance 3245.4 5148 PT 15.1 SEC (12.0-15.0) H 05/16/18 18:10 INR 1.17 (0.83-1.16) H 05/16/18 18:10 The patient is unresponsive to verbal and tactile and painful stimulation. She does not follow any commands. Pupils are 3 mm and reactive bilaterally. Corneal reflexes are absent. Oculocephalic reflexes are absent. There is no reaction to brow pressure. No response to painful stimuli in the extremities except for a pathologic reflex in the lower extremities of Babinski sign. Laboratory Tests 05/17/18 04:15 BUN 26 H Creatinine 2.3 H AST 229 H ALT 324 H Allergies/Adverse Reactions: Unable to Assess Allergy (Unverified 05/14/18 21:18)
--- NOTE | 2018-05-17 08:42 | PDINTPN ---
Dredge Lever Operator Progress Note Assessment/Plan: Assessment/plan: * Cardiac arrest-unclear etiology. Query obstructive sleep apnea and severe acidosis. Cardiac catheterization was negative * HACA protocol-all off protocol now * Morbid obesity * Diabetes-blood sugar under control * Acute respiratory failure-secondary to above -continue mechanical ventilation for now. -not ready for weaning. * Upper GI bleed * Anemia * Probable obesity hypoventilation syndrome * Shock-stable on dopamine * Acute renal failure-no urine output * Elevated transaminases-shock liver * Aspiration pneumonia- -continue current antibiotics * Lymphedema * VTE prophylaxis * Stress ulcer prophylaxis * Code status: Patient now do not resuscitate I had a long discussion with the patient's regarding her exceedingly poor prognosis for meaningful recovery. He wishes to wait to see what the EEG shows, but to space withdrawal support perhaps later today. Subjective: Coma Objective: Vital Signs Temp Pulse Resp BP Pulse Ox 36.6 C 104 H 22 H 114/62 97 05/17/18 08:00 05/17/18 08:00 05/17/18 08:00 05/17/18 08:00 05/17/18 08:00 Microbiology 05/14/18 22:22 Urine Culture - Final Urine,Clean Catch 05/15/18 09:49 Gram Stain - Final Lung Bilateral - Bronchial Washings Laboratory Results 05/17/18 04:15 05/17/18 04:15 05/16/18 05/17/18 05/18/18 05:59 05:59 05:59 Intake Total 5425.4 5576 Output Total 2180 428 0 Balance 3245.4 5148 0 PT 15.1 SEC (12.0-15.0) H 05/16/18 18:10 INR 1.17 (0.83-1.16) H 05/16/18 18:10 - Time Spent With Patient Time Spent With Patient: 35 min of critical care time spent with patient. Case discussed with nursing and family Physical Exam - Physical Exam General Appearance: unresponsive, other (Coma), No alert EENT: other (No gag), No PERRL/EOMI Neck: non-tender Respiratory: rhonchi (Scattered), No respiratory distress, No wheezing Cardiac/Chest: normal peripheral pulses, regular rate, rhythm Abdomen: normal bowel sounds, non-tender, soft Pelvic Exam: deferred Rectal: deferred Skin: warm/dry Extremities: non-tender Neuro/Psych: other (Coma), No alert ICD10 Worksheet Patient Problems: Problems Problem Status Onset Acute coronary syndrome Acute Cerebral anoxia Acute Coma Acute Respiratory failure Acute
[2018-05-17] MEDS ORDERED: ENOXAPARIN 40 MG/0.4 ML SYR SC SCH (09:00)
[2018-05-17] MEDS: fentaNYL/NACL 100 ML IV SCH (09:03)
[2018-05-17] MEDS: PANTOPRAZOLE SODIUM 40 MG VIAL IVP SCH (09:03)
--- NOTE | 2018-05-17 10:37 | HOSPPROG ---
Hospitalist Progress Note Assessment/Plan: * Cardiac arrest due to severe acidosis - query DKA plus severe obesity, OHS, MEREDITH -cardiac cath negative, CTA chest negative * Possible anoxic encephalopathy - s/p HACA. Neurologic evaluation yest afternoon revealed some brainstem reflexes, but no e/o cortical function -discussed with neurology, EEG this afternoon * Acute respiratory failure - vent management per pulm * MART - oliguric -albumin/lasix trial * Diabetes - previously untreated, presented with DKA and profound acidemia ( pH 6.6) -insulin gtt * Morbid obesity BMI 60 - complicates all aspects of care * Probable Obesity Hypoventilation Syndrome and MEREDITH - currently on vent * Anion gap metabolic and respiratory acidosis - ? DKA -s/p IV bicarb * Shock - off pressors * Coffee ground emesis -IV Protonix * Hyperkalemia - improved * Positive troponin - due to cardiac arrest -cardiac cath negative * Shock liver - follow * Acute renal failure - follow * Aspiration pneumonia -IV ceftriaxone, IV Flagyl * Lymphedema * Tobacco dependence * DVT PPLX - will start pplx Lovenox once re-warmed * Dispo - cont inpt/ICU. 45 minutes critical care time, discussed with Dr. Rosales and care team at multidisciniplary rounds Goals of care: discussion with Jakub, pt's , who is anticipating withdrawing care this afternoon after EEG. They would like to proceed with EEG , but she is now DNR. Subjective: Pt remains ventilated, sedated. Off sedation yesterday, she did not wake up or follow commands, remains in coma. NO fevers. No UOP. Objective: Vital Signs Temp Pulse Resp BP Pulse Ox 37 C 107 H 18 159/84 H 94 05/17/18 10:00 05/17/18 10:00 05/17/18 10:00 05/17/18 10:00 05/17/18 10:00 Microbiology 05/14/18 22:22 Urine Culture - Final Urine,Clean Catch 05/15/18 09:49 Gram Stain - Final Lung Bilateral - Bronchial Washings Laboratory Results 05/17/18 04:15 05/17/18 04:15 05/16/18 05/17/18 05/18/18 05:59 05:59 05:59 Intake Total 5425.4 5576 Output Total 2180 428 0 Balance 3245.4 5148 0 PT 15.1 SEC (12.0-15.0) H 05/16/18 18:10 INR 1.17 (0.83-1.16) H 05/16/18 18:10 - Physical Exam Constitutional: no apparent distress Eyes: PERRL, other (scleral edema, no corneal reflex) Cardiovascular: regular rate and rhythym Respiratory: no respiratory distress Gastrointestinal: normoactive bowel sounds, soft, non-tender abdomen Skin: other (extremities cool) Neurologic: other (sedated) Psychiatric: other ICD10 Worksheet Patient Problems: Problems Problem Status Onset Acute coronary syndrome Acute Cerebral anoxia Acute Coma Acute Respiratory failure Acute
[2018-05-17] MEDS ORDERED: FUROSEMIDE 40 MG/4 ML VIAL IVP ONE (12:00)
[2018-05-17 15:18] VITALS: BP 115/93
--- NOTE | 2018-05-17 15:53 | NEUROPROG ---
Assessment: Total unit time of 25 min. 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 There are some brainstem reflexes present and she agrees over the ventilator but likely as diffuse cortical injury as well as some brainstem injury from this prolonged period of compromise. Her prognosis remains in the poor category. I have discussed this with the family. I will request EEG to more fully characterize the relative level of cerebral activity. There will continue to consider the options of withdrawing care or shifting the care to merely comfort measures but have not made that decision at this point. 05/17/18:I have reviewed EEG. The patient is in COMA. EEG show intermittent rhythmic delta with suppressed background and muscle artifact in frontal electrodes. The findings are consistent with severe encephalopathy. Prognosis remains poor. Family plans to withdraw care and move to comfort measures today. Objective: Vital Signs Temp Pulse Resp BP Pulse Ox 36.6 C 96 21 H 115/93 H 98 05/17/18 15:00 05/17/18 15:00 05/17/18 15:00 05/17/18 15:00 05/17/18 15:00 Microbiology 05/15/18 09:49 Gram Stain - Final Lung Bilateral - Bronchial Washings 05/14/18 22:22 Urine Culture - Final Urine,Clean Catch Laboratory Results 05/17/18 04:15 05/17/18 04:15 05/16/18 05/17/18 05/18/18 05:59 05:59 05:59 Intake Total 5425.4 5576 Output Total 2180 428 0 Balance 3245.4 5148 0 PT 15.1 SEC (12.0-15.0) H 05/16/18 18:10 INR 1.17 (0.83-1.16) H 05/16/18 18:10 Allergies/Adverse Reactions: Unable to Assess Allergy (Unverified 05/14/18 21:18)
[2018-05-17] MEDS ORDERED: LORazepam 2 MG/ML INJ IVP PRN (16:15)
== END 2018-05-17 23:00 | disposition expired | DRG 166 ==
LOC: EDUNIT# → F2N 21:30
PROVIDERS: ADMIT Hospitalist; ATTEND Hospitalist
PROC: 5A1945Z Respiratory Ventilation, 24-96 Consecutive Hours (ICD-10-PCS; 2018-05-14)
PROC: 0BH17EZ Insertion of Endotracheal Airway into Trachea, Via Natural or Artificial Opening (ICD-10-PCS; 2018-05-14)
PROC: 06HN33Z Insertion of Infusion Device into Left Femoral Vein, Percutaneous Approach (ICD-10-PCS; 2018-05-14)
PROC: B2111ZZ Fluoroscopy of Multiple Coronary Arteries using Low Osmolar Contrast (ICD-10-PCS; 2018-05-14)
PROC: B2161ZZ Fluoroscopy of Right and Left Heart using Low Osmolar Contrast (ICD-10-PCS; 2018-05-14)
PROC: 0B9B8ZZ Drainage of Left Lower Lobe Bronchus, Via Natural or Artificial Opening Endoscopic (ICD-10-PCS; principal; 2018-05-15)
PROC: 0B9J8ZX Drainage of Left Lower Lung Lobe, Via Natural or Artificial Opening Endoscopic, Diagnostic (ICD-10-PCS; principal; 2018-05-15)
DX: J96.01 Acute respiratory failure with hypoxia (principal); G93.49 Other encephalopathy; K72.01 Acute and subacute hepatic failure with coma; E87.2 Acidosis; E87.0 Hyperosmolality and hypernatremia; N17.9 Acute kidney failure, unspecified; Z68.44 Body mass index [BMI] 60.0-69.9, adult; I46.9 Cardiac arrest, cause unspecified; J96.02 Acute respiratory failure with hypercapnia; E11.40 Type 2 diabetes mellitus with diabetic neuropathy, unspecified; I10 Essential (primary) hypertension; E66.01 Morbid (severe) obesity due to excess calories; E86.1 Hypovolemia; E87.5 Hyperkalemia; G89.29 Other chronic pain; F17.210 Nicotine dependence, cigarettes, uncomplicated
CPT/HCPCS: 80307; 82435-PO; 82565-PO; 82947-PO; 82947-QW; 84132-PO; 84295-PO; 84484-PO; 84520-PO; 85014-PO; 96374; G0480; J0330; J0461; J0583; J0696; J1265; J1644; J1650; J1815; J1940; J2250; J2704; J3010; J3480; J7613; P9047; Q9967